=== PATIENT | female | born 1995 | race Caucasian/White ===

== ENCOUNTER 2024-02-29 18:40 | Emergency (ER) | payer MEDICAID ==
[~2024-02-29] VITALS: Ht 157.5 cm; Wt 57.0 kg
[2024-02-29 18:44] VITALS: O2SAT 98
[2024-02-29] MEDS: KETOROLAC 15MG/ML VIAL IM ONE (21:08)
[2024-02-29 22:10] VITALS: BP 100/67; PULSE 64; RESP 18; TEMP 97.8
== END 2024-02-29 22:27 | disposition home or self-care (01) ==
LOC: ER 18:40
DX: S06.0X0A Concussion without loss of consciousness, initial encounter (principal); Y08.89XA Assault by other specified means, initial encounter; Y93.89 Activity, other specified; Y92.89 Other specified places as the place of occurrence of the external cause; Y99.8 Other external cause status
CPT/HCPCS: 99283; 81025; 96372; J1885